=== PATIENT | male | born 1960 | race Caucasian/White ===

== ENCOUNTER 2018-11-28 14:44 | Emergency (ER) | payer OTHER ==
[~2018-11-28] VITALS: Ht 167.6 cm; Wt 72.0 kg
[2018-11-28] MEDS ORDERED: METF-414 PO (14:58)
[2018-11-28] MEDS ORDERED: IBUPROFEN 600MG TABLET PO STA (18:10)
[2018-11-28 19:48] VITALS: BP 144/68
== END 2018-11-28 19:49 | disposition home or self-care (01) ==
LOC: ER 14:44
DX: M25.512 Pain in left shoulder (principal); R07.89 Other chest pain; Z79.899 Other long term (current) drug therapy; V89.2XXA Person injured in unspecified motor-vehicle accident, traffic, initial encounter; Y93.89 Activity, other specified; Y92.89 Other specified places as the place of occurrence of the external cause; Y99.8 Other external cause status
CPT/HCPCS: 71045; 73030; 93005; 99283